=== PATIENT | female | born 2000 | race Caucasian/White ===

== ENCOUNTER 2020-08-06 11:12 | Emergency (ER) | payer OTHER ==
[~2020-08-06] VITALS: Ht 160 cm; Wt 56.8 kg
[2020-08-06] MEDS ORDERED: IBUPROFEN 600 MG TABLET PO ONE (11:45)
[2020-08-06 12:43] VITALS: BP 126/58
== END 2020-08-06 13:26 | disposition home or self-care (01) ==
LOC: EMS 11:12
DX: S62.663A Nondisplaced fracture of distal phalanx of left middle finger, initial encounter for closed fracture (principal); X58.XXXA Exposure to other specified factors, initial encounter; Y93.89 Activity, other specified; Y92.89 Other specified places as the place of occurrence of the external cause; Y99.8 Other external cause status
CPT/HCPCS: 99283